=== PATIENT | male | born 1965 | race Two or more races ===

== ENCOUNTER 2016-08-18 09:56 | Outpatient (CLI) ==
[2016-08-18 10:34] LABS: CREATININE 0.85 mg/dL (0.60-1.10)
== END 2016-08-18 09:57 | disposition home or self-care (01) ==
LOC: RAD 09:56
PROVIDERS: ATTEND Otolaryngology
DX: J38.3 Other diseases of vocal cords (principal)
CPT/HCPCS: 36415; 82565

== ENCOUNTER 2016-08-21 07:09 | Outpatient (CLI) ==
--- NOTE | 2016-08-21 08:40 | CT ---
Examination: Helical CT examination of the neck soft tissues with intravenous contrast. Reason for study: Lesion on the vocal cord. Comparison: None available. FINDINGS: The partially imaged intracranial structures are unremarkable. The paranasal sinuses are unopacifie d. The larynx, hypopharynx, and tracheal regions are unremarkable. There is mild basilar symmetry of the piriform sinus aeration that is likely secondary to postsurgical change from the ACDF. No di screte soft tissue lesions are seen within the neck. The partially imaged lung apices are unremarka ble. Anterior cervical discectomy and fusion is noted spanning C5-C7. Impression: No soft tissue masses are seen within the neck.
== END 2016-08-21 07:10 | disposition home or self-care (01) ==
LOC: RAD 07:09
PROVIDERS: ATTEND Otolaryngology
DX: J38.3 Other diseases of vocal cords (principal)

== ENCOUNTER 2016-09-13 12:51 | Observation (INO) ==
[2016-09-13] MEDS ORDERED: TYLENOL PO PRN ×2 (13:11→15:49)
[2016-09-13] MEDS ORDERED: NORCO 5-325 PO PRN ×2 (13:12→14:53)
[2016-09-13] MEDS ORDERED: ZOFRAN 4 MG/2 ML IVP PRN (13:14)
[2016-09-13 13:31] VITALS: BMI 38.0
[2016-09-13] MEDS ORDERED: GLUCOPHAGE ONE (18:23)
[2016-09-13] MEDS ORDERED: GLUCOPHAGE PO SCH (18:30)
[2016-09-13 18:32] VITALS: BP 156/98; TEMP 97
[2016-09-14] MEDS ORDERED: GLUCOPHAGE PO SCH (08:00)
[2016-09-14] MEDS ORDERED: NON-FORMULARY MEDICATION (Metformin Hcl [Metformin Hcl Er] 1,000 MG) PO SCH ×22 (09:00)
--- NOTE | 2016-09-14 15:17 | OP ---
PREOPERATIVE DIAGNOSIS: Laryngeal Mass POSTOPERATIVE DIAGNOSIS: Laryngeal Papilloma OPERATION: DRAINING BIOPSY OF LARYNGEAL MASS/POLYP PROCEDURE: The patient was taken to surgery, placed on the table and general anesthesia was administered. The patient was hyperventilated and then a Laryngoscope was inserted down the level of the vocal cords which revealed and large papilloma of the right true vocal cord. This was excised with cup forceps. A rather large papilloma likewise done on the anterior commissure area by the left true vocal cord. Again, using cup forceps this was excised. Bleeding was minimal. The patient was then hyperventilated and again the vocal cords was inspected where there was no evidence of additional masses. The patient was then awaken and taken back to the recovery room in satisfactory condition. REJI
--- NOTE | 2016-10-11 09:36 | DS ---
DISCHARGE DIAGNOSIS: VOCAL CORD POLYPS OPERATION: DIRECT LARYNGOSCOPY AND BIOPSY SUMMARY: This is gentleman with a history of having a hoarseness and vocal cord nodules. He had excision of large vocal lesions of the larynx. He was admitted for observation and discharged the following evening. He is to have diet as tolerated and instructed to return to my office in one to two weeks. REJI
== END 2016-09-13 21:00 | disposition home or self-care (01) ==
LOC: MEDSURG A 12:51
PROVIDERS: ADMIT Otolaryngology; ATTEND Otolaryngology
DX: J38.1 Polyp of vocal cord and larynx (principal); D14.1 Benign neoplasm of larynx; R73.03 Prediabetes; Z98.890 Other specified postprocedural states
CPT/HCPCS: 82962

== ENCOUNTER → 2016-09-13 | Day surgery (SDC) ==
[~2016-09-13] MED LIST: ANECTINE ONE; DECADRON 4 MG/ML SDV ONE; DIPRIVAN 20 ML VIAL IVP ONE; KETALAR MDV ONE; NORCO 5-325 PO ONE; SUBLIMAZE ONE; TRANDATE ONE; VERSED ONE; ZEMURON ONE
[2016-09-13 08:49] VITALS: TEMP 98
[2016-09-13 12:37] VITALS: BP 125/81
== END | disposition home or self-care (01) ==
LOC: SURG 08:13
PROVIDERS: ATTEND Otolaryngology
DX: J38.1 Polyp of vocal cord and larynx (principal); D14.1 Benign neoplasm of larynx; R73.03 Prediabetes

== ENCOUNTER 2016-12-13 07:45 | Day surgery (SDC) ==
[2016-12-13] MEDS ORDERED: SUFENTA IVP ONE (09:29)
[2016-12-13] MEDS ORDERED: ZEMURON ONE (09:29)
[2016-12-13] MEDS ORDERED: VERSED ONE (09:29)
[2016-12-13] MEDS ORDERED: DECADRON 4 MG/ML SDV ONE (09:29)
[2016-12-13] MEDS ORDERED: NEOSTIGMINE IVP ONE (09:29)
[2016-12-13] MEDS ORDERED: DIPRIVAN 20 ML VIAL IVP ONE (09:29)
[2016-12-13] MEDS ORDERED: ROBINOL ONE (09:29)
[2016-12-13] MEDS ORDERED: NORCO 7.5-325 MG/15 ML PO ONE (10:24)
[2016-12-13 13:48] VITALS: BP 131/86; TEMP 98.1
--- NOTE | 2016-12-13 14:32 | OP ---
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 5.5mm Endotracheal tube was inserted and then using a 400mm Zeiss microscope, after the anterior laryngoscope endoscope was inserted, the laryngeal papilloma was noted to involve mainly the mid part of the left cord and anterior and one-third of the right true cord as well as subglottic area mainly on the right side and anterior but using cup forceps the laryngeal papilloma was removed and after this the patient was extubated and returned to the Recover Room in satisfactory condition. REJI
== END 2016-12-13 13:55 | disposition home or self-care (01) ==
LOC: SURG 07:45
PROVIDERS: ATTEND Otolaryngology
DX: D10.5 Benign neoplasm of other parts of oropharynx (principal)

== ENCOUNTER 2016-12-16 18:37 | Emergency (ER) ==
[2016-12-16 18:44] VITALS: BP 149/100; TEMP 98; BMI 36.0
[2016-12-16] MEDS ORDERED: TORADOL IM STA (19:16)
--- NOTE | 2016-12-16 19:18 | ED.PDOC ---
General ED Provider: Dr. BURTON HERNANDEZ Chief Complaint: Earache Stated Complaint: Patient states that he had biopsy of his vocal cords recenlty and now has pain on his thorat radiating to the right ear. He was unable to get his hydrocordone filled since the pharmacy did not carry it. Time Seen by Physician: 19:17 Mode of Arrival: Walk-In Information Source: Patient Exam Limitations: No limitations Primary Care Provider: LOR CARRANZA Nursing and Triage Documentation Reviewed and Agree: Yes EENT Complaint Exam - Ear Complaint/Exam Onset/Duration: 2 days Symptoms Are: Still present Timing: Constant Initial Severity: Moderate Current Severity: Severe Character: Reports: Sharp pain Aggravating: Reports: Eating Alleviating: Reports: None Associated Signs and Symptoms: Denies: Ear trauma, Ear swelling, Discharge, Fever, Hearing loss, Bleeding, Sore throat, Headache, URI symptoms, Foreign body sensation, Rash, Pain to external ear Ear Surgical History: Prior ENT Surgery (recent vocal cord biopsy) Vesicles to External Pinna: No Vesicles to Tragus: No TMJ Tenderness: Right Mastoid Tenderness: None Tragal Tenderness: None External Canal: Normal Material in Canal: Absent: Cerumen, Cerumen impaction, Discharge, Blood, Foreign body Differential Diagnoses: Otitis Externa, URI Review of Systems - Review Of Systems Constitutional: Reports: No symptoms Eyes: Reports: No symptoms Ears, Nose, Mouth, Throat: Reports: Ear pain, Throat pain Respiratory: Reports: No symptoms Cardiac: Reports: No symptoms GI: Reports: No symptoms : Reports: No symptoms Musculoskeletal: Reports: No symptoms Skin: Reports: No symptoms Neurological: Reports: No symptoms Endocrine: Reports: No symptoms Hematologic/Lymphatic: Reports: No symptoms All Other Systems: Reviewed and Negative Past Medical History - Past Medical History Previously Healthy: Yes Endocrine: Reports: None Cardiovascular: Reports: None Respiratory: Reports: None Hematological: Reports: None Gastrointestinal: Reports: None Genitourinary: Reports: None Neuro/Psych: Reports: None Musculoskeletal: Reports: None Cancer: Reports: None - Surgical History General Surgical History: Reports: Other (Laryngial polypectomy ) - Family History Family History: Reports: None - Social History Smoking Status: Never smoker Hx Substance Use: No Alcohol Screening: None - Immunizations Tetanus Shot up to Date: Yes Physical Exam - Physical Exam Appearance: Ill-appearing, Obese Ill-appearing: Mild Pain Distress: Severe Eyes: DIPAK, EOMI, Conjunctiva clear ENT: Ears normal, Nose normal, Oropharynx normal Neck: Supple Respiratory: Airway patent, Breath sounds clear, Breath sounds equal, Respirations nonlabored Psychiatric: Anxious Critical Care Note - Critical Care Note Total Time (mins): 0 Course - Course Orders, Labs, Meds: Orders Category Date Time Status Ketorolac Tromethamine [Toradol] MEDS 12/16/16 19:16 Stat 60 mg IM ONCE STA Vital Signs: Temp Pulse Resp BP Pulse Ox 12/16/16 18:37 98 F 98 H 20 149/100 H 98 Departure - Departure Time of Disposition: 19:45 Disposition: HOME SELF-CARE Discharge Problem: Laryngeal papilloma, Ear pain, right Instructions: Earache (ED) Condition: Stable Pt referred to PMD for follow-up: Yes Additional Instructions: take medications as prescribed Follow up with PCP in 3 days Prescriptions: Oxycodone HCl/Acetaminophen [Percocet 5-325 mg Tablet] 1 each PO TID #10 tablet Allergies/Adverse Reactions: Allergies codiene Allergy (Uncoded 12/16/16 18:47) Home Medications: Ambulatory Orders Metformin HCl [Metformin HCl ER] 1,000 mg PO DAILY 09/13/16 Oxycodone HCl/Acetaminophen [Percocet 5-325 mg Tablet] 1 each PO TID #10 tablet 12/16/16 Disposition Discussed With: Patient
== END 2016-12-16 19:52 | disposition home or self-care (01) ==
LOC: ED 18:37
DX: D14.1 Benign neoplasm of larynx (principal); H92.01 Otalgia, right ear; G89.18 Other acute postprocedural pain; Z98.890 Other specified postprocedural states
CPT/HCPCS: 96372; 99282

== ENCOUNTER 2017-02-21 07:32 | Day surgery (SDC) ==
[2017-02-21] MEDS ORDERED: LIDOCAINE 1% 20 ML MDV ONE (08:00)
[2017-02-21] MEDS ORDERED: LIDOCAINE 1% 2ML (SURGERY ONLY) ID ONE (08:00)
[2017-02-21] MEDS ORDERED: DIPRIVAN 20 ML VIAL IVP ONE (08:45)
[2017-02-21] MEDS ORDERED: ANECTINE ONE (08:45)
[2017-02-21] MEDS ORDERED: SUFENTA IVP ONE (08:45)
[2017-02-21] MEDS ORDERED: VERSED ONE (08:45)
[2017-02-21] MEDS ORDERED: NORCO 5-325 PO ONE (09:48)
[2017-02-21 12:14] VITALS: BP 116/72; TEMP 97.2
--- NOTE | 2017-03-01 09:42 | OP ---
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 5.5 endotracheal tube was inserted and anterior laryngoscope was inserted to the level of the vocal cords. Using a Lewy camarillo, the laryngoscope was secured and then using a 400 mm lens on Juan microscope, polyps were removed from the right anterior vocal cord as well as subglottic. There were laryngeal polyps involving the anterior commissure subglottically and these were removed with straightening laryngeal forceps. Bleeding was minimal. The patient was then extubated and returned to the recovery room in satisfactory condition. REJI
== END 2017-02-21 12:09 | disposition home or self-care (01) ==
LOC: SURG 07:32
PROVIDERS: ATTEND Otolaryngology
DX: D10.5 Benign neoplasm of other parts of oropharynx (principal); J38.1 Polyp of vocal cord and larynx; R73.03 Prediabetes
CPT/HCPCS: 82962